=== PATIENT | female | born 1955 | race Caucasian/White ===

== ENCOUNTER → 2024-03-26 06:44 | Outpatient (REF) | payer OTHER, SELFPAY | LOC: HWWDC 06:44 | PROVIDERS: ATTENDING PHYSICIAN Obstetrics & Gynecology; FAMILY PHYSICIAN Family Medicine | DX: Z12.31 Encounter for screening mammogram for malignant neoplasm of breast (principal) | CPT/HCPCS: 77063; 77067 ==

== ENCOUNTER → 2024-04-16 12:43 | Outpatient (REF) | payer OTHER, SELFPAY | LOC: HWRAD 12:43 | PROVIDERS: ATTENDING PHYSICIAN Obstetrics & Gynecology; FAMILY PHYSICIAN Family Medicine | DX: N95.0 Postmenopausal bleeding (principal) | CPT/HCPCS: 76830; 76856 ==

== ENCOUNTER → 2024-05-24 09:52 | Outpatient (REF) | payer OTHER, SELFPAY | LOC: MRI 3T 09:52 | PROVIDERS: ATTENDING PHYSICIAN Physical Medicine & Rehabilitation; FAMILY PHYSICIAN Family Medicine | DX: M54.50 Low back pain, unspecified (principal); M54.17 Radiculopathy, lumbosacral region; M43.16 Spondylolisthesis, lumbar region | CPT/HCPCS: 72148 ==

== ENCOUNTER 2024-06-29 06:32 | Day surgery (SDC) | payer OTHER, SELFPAY ==
[2024-06-25 08:31] VITALS: BMI 32.4
[2024-06-25 08:55] LABS: % Basophils 0.4 % (0-2); % Eosinophils 1.2 % (0-6); % Immature Granulocytes 0.2 % (0-0.5); % Lymphocytes 42.5 % (20.5-51.1); % Monocytes 7.1 % (1.7-9.3); % Neutrophils 48.6 % (42.2-75.2); Absolute Eosinophils 0.1 10^3/uL (0-0.7); Absolute Lymphocytes 2.1 10^3/uL (1.2-3.4); Absolute Monocytes 0.3 10^3/uL (0.1-0.6); Absolute Neutrophils 2.3 10^3/uL (1.4-6.5); Hematocrit 38.1 % (37.0-47.0); Hemoglobin 12.7 g/dL (12.0-16.0); Mean Corp Hgb Conc. 33.3 g/dL (33.0-37.0); Mean Corpuscular Hgb 28.9 pg (27.0-31.0); Mean Corpuscular Volume 86.6 fL (81.0-99.0); Mean Platelet Volume 9.9 fL (7.4-10.4); Nucleated Red Blood Cells % 0 %; Platelet Count 248 10^3/uL (130-400); Red Cell Dist. Width 12.5 % (11.5-14.5); White Blood Cell Count 4.8 10^3/uL (4.8-10.8)
[2024-06-25 10:22] LABS: Blood Urea Nitrogen 19 mg/dl (7-17); Calcium 9.3 mg/dl (8.4-10.2); Carbon Dioxide 27 mmol/L (22-30); Chloride 102 mmol/L (98-107); Estimated Creatinine Clearance 75 ml/min; Glucose 97 mg/dl (70-99); Potassium 4.4 mmol/L (3.5-5.1); Sodium 141 mmol/L (135-145); eGFR > 60.00
[2024-06-29] VITALS (9 sets, daily range): BP systolic 101–143; BP diastolic 72–86; BMI 32.4
== END 2024-06-29 12:40 | disposition home or self-care (01) ==
LOC: SDS 06:32
PROVIDERS: ATTENDING PHYSICIAN Obstetrics & Gynecology; FAMILY PHYSICIAN Family Medicine
DX: C54.1 Malignant neoplasm of endometrium (principal); N72 Inflammatory disease of cervix uteri; N95.0 Postmenopausal bleeding; Z17.0 Estrogen receptor positive status [ER+]
CPT/HCPCS: 58558; 88305; 71046; 80048; 85025; 88342; 88360; 93005

== ENCOUNTER → 2024-07-31 10:26 | Outpatient (REF) | payer OTHER, SELFPAY | LOC: HWRAD 10:26 | PROVIDERS: ATTENDING PHYSICIAN Obstetrics & Gynecology Gynecologic Oncology; FAMILY PHYSICIAN Family Medicine; REFERRING PHYSICIAN Obstetrics & Gynecology | DX: C54.1 Malignant neoplasm of endometrium (principal) | CPT/HCPCS: 71260; 74177; Q9967 ==

== ENCOUNTER 2024-08-11 06:17 | Day surgery (SDC) | payer OTHER, SELFPAY ==
[2024-07-30 13:55] VITALS: BMI 31.3
--- NOTE | 2024-08-08 11:02 | W.CON.GYNONC ---
Chief Complaint
-
Endometrial cancer
History of Present Illness
68�year�old�G1,�P1�White�female�referred�to�me�by�Dr.�Rigoberto�Nova�for�management�of�endometrial�cancer.�Patient�apparently
was�on�prednisone�over�the�course�of�summer,who�had�episode�of�bleeding�approximately�3�months�ago,�the�patient�was�taken�to the�operating�room�on�November��for�D&C�hysteroscopy.�Pathology�shows�endometrioid�adenocarcinoma�grade�1,�ER/DC
positive,�immunostains�for�mismatch�repair�proteins�reveal�all�to�be�intact�likely�microsatellite�stable�tumor. Patient�had�an�ultrasound�[place]�2�which�showed�endometrium�7�mm�in�thickness,�and�right�ovary�1.7�cm�left�ovary�1.6 cm.
Past�medical�history�significant�for�hypercholesterolemia,�prediabetes,�bladder�cancer,�hypothyroidism�vitamin�D�deficiency past�surgical�history�includes�D&C
Medications�include�Mounjaro,�Crestor,�Synthroid,�Myrbetriq,�clobetasol,�biotin
Crestor�40�mg�tablet 1�p.o.�q.�day
Mounjaro�12.5�mg/0.5�mL�subcutaneous�pen injector 1�p.o.�q.�day
multivitamin�oral 1�p.o.�q.�day
Myrbetriq�25�mg�tablet,extended�release 1�p.o.�q.�day
Synthroid�125�mcg�tablet 1�p.o.�q.�day
Allergies�include�aspirin,�cortisone,�penicillins�all�causing�rash
Social�History Patient�denies�ever�using�tobacco. Social�use�of�alcohol. Denies�any�illicit�drug�use. Occupational�Status:�Current:�Worker[employer].. Patient�has�not�had�any�occupational�exposure. Marital�Status:�Patient�is�/.
Medical History
Allergies
Allergies reflect when allergies were last updated in [facility].
aspirin Allergy (Verified 08/03/24 12:42)
Rash/HIVES
Penicillins Allergy (Verified 08/03/24 12:42)
Rash/HIVES
Physical Exam
Physical Exam
Pelvic�Examination: External�normal�labia,�urethra,�anus.� Vagina:�Normal�mucosa.� Cervix:�normal�appearance,�no�discharge.�Pap�smear�including�ecto�and�endocervix�was�repeated Uterus:�normal�size.� Adnexa:�No�pelvic�mass.�
RVE:�no�masses�or�nodularity General:�Well�developed,�well�nourished�patient.�In�no�acute�distress. Neck:�No�thyromegaly.�No�cervical�lymphadenopathy. Lungs:�Clear�to�auscultation.�Good�air�movement�bilaterally.
Cardiac:�Regular�rate.�Regular�rhythm.�No�murmurs�appreciated. Right�Breast:�No�masses�or�dimpling.�No�nipple�discharge. Left�Breast:�No�masses�or�dimpling.�No�nipple�discharge. Abdomen:�Abdomen�is�soft.�Non�tender�to�palpation.�Non�distended.
Extremities:�No�edema. Hematologic/Lymphatic:�No�palpable�lymphadenopathy. Musculoskeletal:�Normal�range�of�motion.�Strength�and�Tone�are�normal. Skin:Non�jaundiced.�No�petechia.�No�purpura.
Neurologic:�Speech�is�fluent.�Normal�gait�and�station.�Cranial�nerves�intact.
Results
-
Comp. Metabolic Panel (14)�-FinalOrdered by:�Arlette Samayoa
Glucose 88 mg/dL 70-99 [facility]
BUN 14 mg/dL 8-27 [facility]
Creat 0.81 mg/dL 0.57-1.00 [facility]
eGFR 79 mL/min/1.73 >59 [facility]
BUN Creat Ratio 17 12-28 [facility]
Sodium 142 mmol/L 134-144 [facility]
Potassium 4.2 mmol/L 3.5-5.2 [facility]
Chloride 103 mmol/L 96-106 [facility]
CO2 24 mmol/L 20-29 [facility]
Calcium 8.9 mg/dL 8.7-10.3 [facility]
Total Protein 6.4 g/dL 6.0-8.5 [facility]
Albumin 4.3 g/dL 3.9-4.9 [facility]
Globulin 2.1 g/dL 1.5-4.5 [facility]
Total Bili 0.5 mg/dL 0.0-1.2 [facility]
Alk Phos 72 IU/L 44-121 [facility]
AST 19 IU/L 0-40 [facility]
ALT 22 IU/L 0-32 [facility]
Exams: CT Chest/abd/pel W Iv Cont
Scanning parameters: CT of the chest, abdomen and pelvis with intravenous contrast material was obtained. Automated exposure control was used.
INDICATION: Malignant neoplasm of the endometrium
Comparison examination: 11/10/2021
FINDINGS:
Chest:
There are no abnormal pleural or parenchymal pulmonary masses.
There is no significant parenchymal airspace disease.
There is no pleural effusion.
There is vascular calcification including coronary artery calcification indicating atherosclerosis
The mediastinum is otherwise normal
There are no abnormal mediastinal masses.
There is no hilar lymphadenopathy.
There is no mediastinal lymphadenopathy.
There is no axillary lymphadenopathy.
Abdomen and pelvis:
The liver is normal.
The spleen is normal.
The pancreas is normal.
There is cholelithiasis
There is 2.5 cm nonobstructing staghorn-type left renal calculus
The kidneys are normal.
There is no hydronephrosis.
The adrenals are normal.
There is no abdominal lymphadenopathy.
There is no pelvic lymphadenopathy.
There is no inguinal lymphadenopathy.
The urinary bladder is normal.
The anteverted uterus appears normal
There are no abnormal adnexal masses
There are no areas of pericolonic inflammatory stranding.
Osseous:
There are no blastic or lytic bone lesions
There is disc space narrowing suggesting degenerative disc disease at L4-5 and L5-S1
IMPRESSION:
1). There is no evidence of metastatic disease
2). 2.5 cm nonobstructing staghorn-type left renal calculus
3). Cholelithiasis
4). Multilevel lumbar degenerative disc disease
5). Atherosclerosis
Electronically signed by Joao Calderon MD, 07/31/2024 11:33 AM
Impression / Plan
-
I�spoke�to�the�patient�extensively�and�reviewed�presentation�incidence�and�diagnosis�and�management�of�endometrial�cancer.�She has�risk�factors�including�elevated�BMI�hypercholesterolemia�and�diabetes.�
The�patient�will�need�to�have�labs�done�today�including�CMP�CBC�CA125.� A�baseline�CT�of�chest�abdomen�and�pelvis�reveals no metastatic�disease�at�baseline.
Treatment�will�be�surgery�to�include�robotic�assisted�laparoscopic�total�laparoscopic�hysterectomy,�bilateral�salpingo�oophorectomy injection�of�cervix�with�ICG�dye�mapping�and�identification�and�excision�of�sentinel�lymph�nodes�and�pelvic�washings.
Risk�of�surgery�including�infection�bleeding�injury�to�adjacent�organs�DVT�pulmonary�embolism�and�cardiovascular�complications were�discussed�and�reviewed.
Patient�understands�that�she�will�meet�with�me�2�weeks�after�procedure�to�discuss�the�pathology�and�go�over�risk�factors�for recurrent�disease.�She�understands�adjuvant�treatment�may�be�advised�depending�on�extent�of�disease�and�risk�of�local�and
systemic�recurrence. Informed�consent�was�obtained�in�the�office�today.�Surgery�will�be�scheduled�in�mid�[place].
[2024-08-11] VITALS (8 sets, daily range): BP systolic 132–166; BP diastolic 62–99; BMI 31.3
[2024-08-11] MEDS: HEPARIN 5000 UNITS SC (06:56)
[2024-08-11] MEDS: TYLENOL 1000 MG PO (06:56)
[2024-08-11] MEDS: NEURONTIN 300 MG PO (06:56)
[2024-08-11] MEDS: NORMOSOL-R/PLASMALYTE-A 1000 IV (07:14)
[2024-08-11 07:17] LABS: Glucose - Point of Care 102 mg/dl (70-99)
[2024-08-11] MEDS: CELEBREX 200 MG PO (07:22)
[2024-08-11 09:06] LABS: Glucose - Point of Care 140 mg/dl (70-99)
--- NOTE | 2024-08-11 09:59 | OR.RPT ---
Operative Report
Operative Report
DATE OF OPERATION: August 11, 2024
SURGEON: Zoran Samayoa MD
Soccer Coach: Ibeth Hart PA-C, Jamie Curtis PA-C
The assistance of and Vivek was required due to the complexity of the procedure. During the procedure they assisted with retraction, resection, and closure of the wound.
DICTATED BY: Zoran Samayoa MD
PREOPERATIVE DIAGNOSES: Endometrial cancer
POSTOPERATIVE DIAGNOSES: Endometrial cancer
PROCEDURE:
1. Robotic-assisted total laparoscopic hysterectomy with bilateral
salpingo-oophorectomy, 91376
2. Injection of cervix with ICG dye, bilateral, for mapping and
identification of sentinel lymph nodes. 57644-12
3. Robotic-assisted bilateral pelvic sentinnel lymphadenectomy, 93092-77
4. Transverse abdominal plane block, 76478.
5. Pelvic washings.
ANESTHESIA: General endotracheal intubation.
ESTIMATED BLOOD LOSS: 50 mL.
COMPLICATIONS: None.
INDICATIONS FOR SURGERY: This is a 68-year-old woman who presented with postmenopausal bleeding, endometrial sampling has revealed grade 1 endometrioid adenocarcinoma
DESCRIPTION OF PROCEDURE: She was brought to the operating room for definitive management. On arrival, she was placed in supine
position, general anesthesia was administered. She was intubated without any difficulty. She was placed in the lithotomy position. We prepped her on the abdomen, perineum and vagina, and upper thighs. Santos catheter was inserted under sterile
conditions with bladder drainage. Anterior lip of the cervix was grasped with a single tooth tenaculum. I went ahead and injected ICG dye both at 3 and 9 o'clock and 5 and 10 mm depth of injections and then placed a uterine manipulator, neurology tech
type, a 3 cm Gloria ring in the
uterus. Vaginal cuff occluder was insufflated.
Next, the attention was turned abdominally. Veress needle was inserted just below the right subcostal margin three times until we
were able to get into the appropriate space in order to insufflate the abdomen with CO2 gas. We then placed our first port in the mid epigastric region.
Other ports were placed under direct visualization in right and left upper quadrants as well as lateral abdomen.
The patient was placed in Trendelenburg, approximately 28 degrees, We were able to dock the robotic system. . Both round ligaments were sealed and
divided. We used a vessel sealer for ligating ovarian vessels. We opened the retroperitoneal spaces and created a space between the
ureters and IP ligaments. Both IP ligaments were sealed three times and then divided. Tubes and ovaries were left attached to the
uterus. I did use the firefly near infrared lighting system and mapped both sides sentinel lymph nodes. On the right side the lymph node was located at the proximal aspect of right external iliac artery, on the left side there was a distal external
iliac artery sentinel lymph node and then a proximal external iliac lymph node. These were identified by following the channels.. We then developed a bladder flap sharply and advanced it below the cervicovaginal junction. Uterine arteries were
sealed and divided. Parametrium and paracervical tissue were sealed and divided. Circumferential incision was made around the Gloria ring, and the specimen was amputated.
The vaginal cuff was then closed with 0 Vicryl suture ligatures incorporating uterosacral ligaments for support on both apices of the vagina in a figure-of-8 fashion and
then a V-loc suture was used to close the cuff starting from right and left and coming back for a 2nd layer. We irrigated copiously and then proceeded to go to the retroperitoneal lymph nodes. On both sides of the pelvis, the retroperitoneum was
examined, and there was no evidence of bleeding.
Please note that right after entering into the abdomen, we used a 22-gauge needle to place under direct visualization ropivacaine 0.5%, 30 mL, that is diluted in 100 mL sterile saline and then we went ahead and injected this in right upper quadrant
and left upper quadrant two fingerbreadths below the costal margins and then we went ahead and injected the mid lateral abdomen and then right lower quadrants a fingerbreadth above ASIS. This accounted for the entire TAP block procedure. We removed
all robotic ports under
direct visualization. The skin closure was accomplished with 4-0 Monocryl suture in a subcuticular fashion, and skin glue was applied. Vagina was examined, and there were no lacerations or bleeding, and the Santos catheter was removed.
Patient was awakened, extubated and returned back to recovery room stable, awake and extubated. Condition, consult, labs, instrument and needle counts were correct x2. I was present and scrubbed for entire procedure as dictated above.
[2024-08-11 10:15] LABS: Glucose - Point of Care 147 mg/dl (70-99)
[2024-08-11] MEDS: ROXICODONE 5 MG PO (11:20)
== END 2024-08-11 10:35 | disposition home or self-care (01) ==
LOC: SDS 06:17
PROVIDERS: ATTENDING PHYSICIAN Obstetrics & Gynecology Gynecologic Oncology
DX: C54.1 Malignant neoplasm of endometrium (principal); D25.9 Leiomyoma of uterus, unspecified; N83.8 Other noninflammatory disorders of ovary, fallopian tube and broad ligament; N95.0 Postmenopausal bleeding
CPT/HCPCS: 58571; 38571; 88305; 88307; 88309; 36415; 82962; 86850; 86900; 86901; 88112; 88342

== ENCOUNTER → 2024-10-11 12:22 | Outpatient (REF) | payer OTHER, SELFPAY | LOC: MRI 3T 12:22 | PROVIDERS: ATTENDING PHYSICIAN Orthopaedic Surgery; FAMILY PHYSICIAN Family Medicine | DX: M79.672 Pain in left foot (principal) | CPT/HCPCS: 73721 ==

== ENCOUNTER → 2024-12-07 13:06 | Outpatient (REF) | payer OTHER, SELFPAY | LOC: HWRAD 13:06 | PROVIDERS: ATTENDING PHYSICIAN Surgery; FAMILY PHYSICIAN Family Medicine | DX: N20.0 Calculus of kidney (principal) | CPT/HCPCS: 74176 ==

== ENCOUNTER → 2025-03-29 07:48 | Outpatient (REF) | payer OTHER, SELFPAY | LOC: HWWDC 07:48 | PROVIDERS: ATTENDING PHYSICIAN Family Medicine; REFERRING PHYSICIAN Obstetrics & Gynecology | DX: Z12.31 Encounter for screening mammogram for malignant neoplasm of breast (principal) | CPT/HCPCS: 77063; 77067 ==

== ENCOUNTER → 2025-07-20 08:32 | Outpatient (REF) | payer MEDICARE, OTHER, SELFPAY | LOC: RAD 08:32 | PROVIDERS: ATTENDING PHYSICIAN Obstetrics & Gynecology Gynecologic Oncology; FAMILY PHYSICIAN Internal Medicine | DX: C54.1 Malignant neoplasm of endometrium (principal); N20.0 Calculus of kidney; Z71.9 Counseling, unspecified | CPT/HCPCS: 71260; 74177; Q9967 ==

== ENCOUNTER → 2025-08-11 08:34 | Outpatient (REF) | payer MEDICARE, OTHER, SELFPAY | LOC: HWRAD 08:34 | PROVIDERS: ATTENDING PHYSICIAN Obstetrics & Gynecology; FAMILY PHYSICIAN Family Medicine | DX: Z78.0 Asymptomatic menopausal state (principal) | CPT/HCPCS: 77080 ==